=== PATIENT | female | born 1960 | race Caucasian/White ===

== ENCOUNTER 2017-09-03 10:55 | Inpatient (IN) | payer BC, OTHER ==
[2017-09-03] MEDS ORDERED: NS 1,000 ML IV ONE (11:11)
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
[2017-09-03] MEDS ORDERED: LIDOCAINE 1% 80 MG in NS 100 ML IV ONE (11:28)
[2017-09-03] MEDS ORDERED: HALOPERIDOL LACT 5 MG/ML INJ IVP ONE (11:28)
[2017-09-03 11:35] LABS: PLATELET COUNT 309 10^3/uL (150-400)
[2017-09-03] MEDS ORDERED: IOPAMIDOL (ISOVUE-300) 100 ML BTL ONE (11:47)
[2017-09-03] MEDS ORDERED: HYDROmorphONE/DILAUDID 2 MG/ML INJ IVP ONE ×2 (12:39→13:45)
[2017-09-03] MEDS ORDERED: CIPROFLOXACIN 400 MG/DEXTROSE 200 ML IV ONE (13:39)
[2017-09-03] MEDS ORDERED: ONDANSETRON 4 MG/2 ML VIAL IVP PRN (15:16)
[2017-09-03] MEDS ORDERED: ONDANSETRON DISINTEGRATING 4 MG TAB PO PRN (15:16)
[2017-09-03] MEDS ORDERED: HYDROmorphone HCL/NS 0.5 MG/ML SYR IVP PRN (15:16)
[2017-09-03] MEDS ORDERED: ACETAMINOPHEN 325 MG TAB PO PRN (15:16)
[2017-09-03] MEDS ORDERED: oxyCODONE IR 5 MG TAB PO PRN (15:16)
[2017-09-03] MEDS ORDERED: TAPENTADOL HCL 50 MG TAB PO PRN (15:17)
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
[2017-09-03] MEDS ORDERED: NS 500 ML IV SCH (15:30)
[2017-09-03] MEDS: NS 1,000 ML IV SCH (15:36)
[2017-09-03] MEDS: CIPROFLOXACIN 400 MG/DEXTROSE 200 ML IV SCH (16:06)
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
[2017-09-03] MEDS: HYDROmorphone HCL/NS 0.5 MG/ML SYR IVP PRN ×2 (19:48→23:38)
[2017-09-03] MEDS: GABAPENTIN 100 MG CAP PO SCH (21:09)
[2017-09-03] MEDS: LORazepam 2 MG/ML INJ IVP PRN (23:39)
[2017-09-04] MEDS: CIPROFLOXACIN 400 MG/DEXTROSE 200 ML IV SCH ×2 (01:23→15:02)
[2017-09-04] MEDS: NS 1,000 ML IV SCH ×3 (01:23→21:42)
[2017-09-04] MEDS: HYDROmorphone HCL/NS 0.5 MG/ML SYR IVP PRN ×8 (04:32→21:35)
[2017-09-04 05:24] LABS: PLATELET COUNT 264 10^3/uL (150-400)
[2017-09-04] MEDS: ENOXAPARIN 40 MG/0.4 ML SYR SC SCH (07:47)
[2017-09-04] MEDS: PROMETHAZINE HCL 25 MG/ML INJ IVP PRN (09:58)
--- NOTE | 2017-09-04 11:01 | ASMTCASEMG ---
Living Arrangements What is your living Answers: With Spouse arrangement? Who do you live with? Type Of Residence What kind of residence do Answers: House you live in? Discharge Plan Comments Coordination Status Comments Notes: Patient is a 56yo woman who has been admitted for elevated liver enzymes, sigmoid diverticulitis, intractable abdominal pain, and a lesion of the right [place] kidney. An OT eval has been ordered. Patient lives with her in her own home. D/C plan TBD. CM will follow. Date Signed: 09/04/2017 11:00 AM Electronically Signed By:Nahed Garcia LCSW
--- NOTE | 2017-09-04 14:43 | HOSPPROG ---
Hospitalist Progress Note Assessment/Plan: 56 yo F with hx of chronic pain admitted with abdominal pain 2/2 sigmoid diverticulitis # sigmoid diverticulitis: with associated phlegmon and significant pain. Started on IVF, bowel rest, IV abx with cipro/flagyl and IV opiates as needed for pain. NO improvement in pain overnight, may need to advance to [employer]. # elevated lfts: suspect related to above, improved overnight, imaging of liver/ gb all appear normal # hyponatremia: hypovolemic hyponatremia in setting of poor po intake, resolved with IVF # bacturia: without urinary sxs and cultures pending # calcified leiomyota: present on prior imaging as well, will need to f/u with OB after discharge to be sure this remains stable and does not require further w /u # pain: severe, with hx of chronic pain but no longer on chronic opiates at home , may make pain control more challenging, has had good response to IV dilaudid and will continue for now # IP status, given severity of pain and severe diverticulitis suspect she will need > 48 hours stay Care plan reviewed with patients Subjective: no significant overnight events, patient not feeling much better so far, not hungry Objective: Vital Signs Temp Pulse Resp BP Pulse Ox 36.6 C 82 18 135/94 H 96 09/04/17 11:46 09/04/17 11:46 09/04/17 11:46 09/04/17 11:46 09/04/17 11:46 Laboratory Results 09/04/17 04:51 09/04/17 04:51 09/03/17 09/04/17 09/05/17 05:59 05:59 05:59 Intake Total 391 100 Output Total 750 700 Balance -359 -600 Constitutional: appears nourished, uncomfortable Eyes: PERRL, anicteric sclera Ears, Nose, Mouth, Throat: moist mucous membranes Cardiovascular: regular rate and rhythym, no murmur, rub, or gallop, No edema Respiratory: no respiratory distress, no rales or rhonchi, clear to auscultation Gastrointestinal: normoactive bowel sounds, tenderness, No guarding, No rebound , No distension Genitourinary: no bladder tenderness Skin: warm, normal color Musculoskeletal: full muscle strength Neurologic: AAOx3 Psychiatric: interacting appropriately, not anxious, not encephalopathic - Time Spent With Patient Time Spent with Patient: greater than 35 minutes Time Spent with Patient: Greater than 35 minutes spent on this patients care, greater than 50% of time spent counseling, educating, and coordinating care regarding the above mentioned plan. ICD10 Worksheet Patient Problems: Problems Problem Status Onset Elevated liver enzymes Acute Intractable abdominal pain Acute Lesion of right [place] kidney Acute Phlegmon Acute Sigmoid diverticulitis Acute
[2017-09-04] MEDS: GABAPENTIN 100 MG CAP PO SCH (21:35)
[2017-09-04] MEDS: LORazepam 2 MG/ML INJ IVP PRN (21:36)
[2017-09-05] MEDS: HYDROmorphone HCL/NS 0.5 MG/ML SYR IVP PRN ×8 (01:30→21:36)
[2017-09-05] MEDS: CIPROFLOXACIN 400 MG/DEXTROSE 200 ML IV SCH ×2 (02:57→14:06)
[2017-09-05] MEDS: LORazepam 2 MG/ML INJ IVP PRN ×2 (04:30→21:37)
[2017-09-05] MEDS: NS 1,000 ML IV SCH (07:51)
[2017-09-05] MEDS: ENOXAPARIN 40 MG/0.4 ML SYR SC SCH (10:32)
--- NOTE | 2017-09-05 13:11 | HOSPPROG ---
Hospitalist Progress Note Assessment/Plan: 56 yo F with hx of chronic pain admitted with abdominal pain 2/2 sigmoid diverticulitis. First encounter, chart reviewed. # sigmoid diverticulitis: with associated phlegmon and significant pain. IVF, bowel rest IV abx with cipro/flagyl IV opiates as needed for pain. advance diet # elevated lfts: improving suspect related to above, improved overnight imaging of liver/gb all appear normal # hyponatremia: hypovolemic hyponatremia in setting of poor po intake, resolved with IVF # bacturia: without urinary sxs and cultures pending # calcified leiomyota: present on prior imaging as well, will need to f/u with OB after discharge to be sure this remains stable and does not require further w/u # pain: improved, with hx of chronic pain but no longer on chronic opiates at home, may make pain control more challenging, has had good response to IV dilaudid and will continue for now # IP status, given severity of pain and severe diverticulitis suspect she will need > 48 hours stay Care plan reviewed with patient Subjective: Feeling a bit better today. Less pain but didn't sleep well. Objective: Vital Signs Temp Pulse Resp BP Pulse Ox 36.6 C 94 16 121/83 H 95 09/05/17 07:28 09/05/17 07:28 09/05/17 07:28 09/05/17 07:28 09/05/17 07:28 Laboratory Results 09/04/17 04:51 09/04/17 04:51 09/04/17 09/05/17 09/06/17 05:59 05:59 05:59 Intake Total 391 3365 200 Output Total 750 1200 900 Balance -359 2165 -700 - Physical Exam Constitutional: no apparent distress, appears nourished, uncomfortable Eyes: PERRL, anicteric sclera, EOMI Ears, Nose, Mouth, Throat: moist mucous membranes, hearing normal, ears appear normal Cardiovascular: regular rate and rhythym, No JVD, No edema Respiratory: no respiratory distress, no rales or rhonchi, clear to auscultation Gastrointestinal: tenderness, No ascites, No distension Skin: warm, normal color, No mottled Musculoskeletal: no joint effusions, pain with ROM, generalized weakness Neurologic: AAOx3 Psychiatric: interacting appropriately, not anxious, not encephalopathic, thought process linear ICD10 Worksheet Patient Problems: Problems Problem Status Onset Elevated liver enzymes Acute Sigmoid diverticulitis Acute Intractable abdominal pain Acute Lesion of right [place] kidney Acute Phlegmon Acute
[2017-09-05] MEDS: GABAPENTIN 100 MG CAP PO SCH (21:36)
[2017-09-06] MEDS: CIPROFLOXACIN 400 MG/DEXTROSE 200 ML IV SCH ×2 (02:57→13:20)
[2017-09-06] MEDS: HYDROmorphone HCL/NS 0.5 MG/ML SYR IVP PRN ×6 (03:02→20:51)
[2017-09-06] MEDS: ENOXAPARIN 40 MG/0.4 ML SYR SC SCH (09:14)
--- NOTE | 2017-09-06 13:00 | HOSPPROG ---
Hospitalist Progress Note Assessment/Plan: 56 yo F with hx of chronic pain admitted with abdominal pain 2/2 sigmoid diverticulitis. # sigmoid diverticulitis: with associated phlegmon and significant pain. IVF, bowel rest IV abx with cipro/flagyl IV opiates as needed for pain. 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 Anxious about pain. Questions answered. Objective: Vital Signs Temp Pulse Resp BP Pulse Ox 37.3 C 81 18 138/93 H 99 09/06/17 07:25 09/06/17 07:25 09/06/17 07:25 09/06/17 07:25 09/06/17 07:25 Laboratory Results 09/04/17 04:51 09/04/17 04:51 09/05/17 09/06/17 09/07/17 05:59 05:59 05:59 Intake Total 3365 800 Output Total 1200 2700 Balance 2165 -1900 - Physical Exam Constitutional: no apparent distress, appears nourished, uncomfortable Eyes: PERRL, anicteric sclera, EOMI Ears, Nose, Mouth, Throat: moist mucous membranes, hearing normal, ears appear normal Cardiovascular: No JVD, No tachycardia, No edema Respiratory: no respiratory distress, no rales or rhonchi, reduced air movement Gastrointestinal: tenderness, distension, No ascites Skin: warm, normal color, No mottled Musculoskeletal: normal joint ROM, no joint effusions, generalized weakness Neurologic: AAOx3 Psychiatric: interacting appropriately, not anxious, not encephalopathic, thought process linear ICD10 Worksheet Patient Problems: Problems Problem Status Onset Elevated liver enzymes Acute Sigmoid diverticulitis Acute Intractable abdominal pain Acute Lesion of right [place] kidney Acute Phlegmon Acute
[2017-09-06] MEDS ORDERED: HYDROmorphONE/DILAUDID 2 MG TAB PO PRN (13:18)
[2017-09-06] MEDS: LORazepam 2 MG/ML INJ IVP PRN (20:50)
[2017-09-06] MEDS: GABAPENTIN 100 MG CAP PO SCH (20:52)
[2017-09-06] MEDS: LORazepam 1 MG TAB PO PRN (23:48)
[2017-09-07] MEDS: HYDROmorphone HCL/NS 0.5 MG/ML SYR IVP PRN ×5 (01:41→19:46)
[2017-09-07] MEDS: NS 1,000 ML IV SCH ×2 (01:41→11:23)
[2017-09-07] MEDS: CIPROFLOXACIN 400 MG/DEXTROSE 200 ML IV SCH ×2 (01:41→13:19)
[2017-09-07] MEDS: ENOXAPARIN 40 MG/0.4 ML SYR SC SCH (07:41)
--- NOTE | 2017-09-07 13:09 | HOSPPROG ---
Hospitalist Progress Note Assessment/Plan: 56 yo F with hx of chronic pain admitted with abdominal pain 2/2 sigmoid diverticulitis. # sigmoid diverticulitis: with associated phlegmon and significant pain. IV abx with cipro/flagyl IV opiates as needed for pain. 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 Still having significant pain. Objective: Vital Signs Temp Pulse Resp BP Pulse Ox 36.6 C 77 16 140/83 H 97 09/07/17 07:56 09/07/17 07:56 09/07/17 07:56 09/07/17 07:56 09/07/17 07:56 Laboratory Results 09/04/17 04:51 09/04/17 04:51 09/06/17 09/07/17 09/08/17 05:59 05:59 05:59 Intake Total 800 2766 Output Total 2700 250 Balance -1900 2516 - Physical Exam Constitutional: appears nourished, chronically ill appearing, uncomfortable Eyes: PERRL, anicteric sclera Ears, Nose, Mouth, Throat: moist mucous membranes, hearing normal, ears appear normal Cardiovascular: No JVD, No tachycardia, No edema Respiratory: no respiratory distress, no rales or rhonchi, clear to auscultation Gastrointestinal: tenderness, No ascites, No guarding Skin: warm, normal color, No mottled Musculoskeletal: normal joint ROM, no joint effusions, generalized weakness Neurologic: AAOx3 Psychiatric: not encephalopathic, thought process linear, anxious ICD10 Worksheet Patient Problems: Problems Problem Status Onset Elevated liver enzymes Acute Sigmoid diverticulitis Acute Intractable abdominal pain Acute Lesion of right [place] kidney Acute Phlegmon Acute
[2017-09-07] MEDS ORDERED: metroNIDAZOLE 500 MG TAB PO SCH (15:30)
--- NOTE | 2017-09-07 17:52 | ASMTCMCOM ---
CM Note CM Note Notes: Spoke w/RN, anticipate pt hieu dc home w/support of when medically stable. CM available for any changes. DC Plan: Independent Date Signed: 09/07/2017 05:51 PM Electronically Signed By:Kim Feliciano RN
[2017-09-07] MEDS: GABAPENTIN 100 MG CAP PO SCH (19:45)
[2017-09-07] MEDS: LORazepam 2 MG/ML INJ IVP PRN (19:47)
[2017-09-07] MEDS ORDERED: CIPROFLOXACIN 500 MG TAB PO SCH (22:00)
[2017-09-08] MEDS: CIPROFLOXACIN 400 MG/DEXTROSE 200 ML IV SCH (03:12)
[2017-09-08] MEDS: HYDROmorphone HCL/NS 0.5 MG/ML SYR IVP PRN ×3 (03:12→11:09)
[2017-09-08] MEDS: ENOXAPARIN 40 MG/0.4 ML SYR SC SCH (08:02)
[2017-09-08] MEDS ORDERED: IBUPROFEN 200 MG TAB PO PRN (10:07)
[2017-09-08] MEDS: KETOROLAC 30 MG/1 ML SDV IVP PRN ×3 (11:26→23:17)
--- NOTE | 2017-09-08 12:58 | HOSPPROG ---
Hospitalist Progress Note Assessment/Plan: 56 yo F with hx of chronic pain admitted with abdominal pain 2/2 sigmoid diverticulitis. # sigmoid diverticulitis: with associated phlegmon and significant pain. abx change to PO, cipro/flagyl IV opiates as needed for pain. 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 Still having some pain. Trying PO abx. Objective: Vital Signs Temp Pulse Resp BP Pulse Ox 36.6 C 73 16 129/85 H 99 09/08/17 07:40 09/08/17 07:40 09/08/17 07:40 09/08/17 07:40 09/08/17 07:40 Laboratory Results 09/04/17 04:51 09/04/17 04:51 09/07/17 09/08/17 09/09/17 05:59 05:59 05:59 Intake Total 2766 500 3279 Output Total 250 Balance 2516 500 3279 - Physical Exam Constitutional: no apparent distress, appears nourished, uncomfortable Eyes: PERRL, anicteric sclera, EOMI Ears, Nose, Mouth, Throat: moist mucous membranes, hearing normal, ears appear normal Cardiovascular: No JVD, No tachycardia, No edema Respiratory: no respiratory distress, no rales or rhonchi, clear to auscultation Gastrointestinal: tenderness, No ascites, No guarding Skin: warm, normal color, No mottled Musculoskeletal: normal joint ROM, no joint effusions, generalized weakness Neurologic: AAOx3 Psychiatric: not encephalopathic, thought process linear, anxious ICD10 Worksheet Patient Problems: Problems Problem Status Onset Elevated liver enzymes Acute Sigmoid diverticulitis Acute Intractable abdominal pain Acute Lesion of right [place] kidney Acute Phlegmon Acute
[2017-09-08] MEDS: PROMETHAZINE HCL 25 MG/ML INJ IVP PRN ×2 (14:07→21:13)
[2017-09-08] MEDS: CIPROFLOXACIN 500 MG TAB PO SCH (14:08)
[2017-09-08] MEDS: metroNIDAZOLE 500 MG TAB PO SCH ×2 (17:24→23:13)
[2017-09-08] MEDS: GABAPENTIN 100 MG CAP PO SCH (21:13)
[2017-09-08] MEDS: LORazepam 1 MG TAB PO PRN (21:13)
[2017-09-09] MEDS: CIPROFLOXACIN 500 MG TAB PO SCH ×2 (02:13→14:20)
[2017-09-09] MEDS: KETOROLAC 30 MG/1 ML SDV IVP PRN ×3 (08:05→21:17)
[2017-09-09] MEDS: metroNIDAZOLE 500 MG TAB PO SCH ×2 (08:06→16:16)
[2017-09-09] MEDS: ENOXAPARIN 40 MG/0.4 ML SYR SC SCH (09:13)
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
[2017-09-09] MEDS: GABAPENTIN 100 MG CAP PO SCH (21:17)
[2017-09-09] MEDS: LORazepam 1 MG TAB PO PRN (21:18)
[2017-09-10] MEDS: metroNIDAZOLE 500 MG TAB PO SCH ×2 (00:57→07:36)
[2017-09-10] MEDS: CIPROFLOXACIN 500 MG TAB PO SCH (00:57)
[2017-09-10 05:00] LABS: PLATELET COUNT 374 10^3/uL (150-400)
[2017-09-10] MEDS: KETOROLAC 30 MG/1 ML SDV IVP PRN (05:52)
[2017-09-10] MEDS: ENOXAPARIN 40 MG/0.4 ML SYR SC SCH (07:55)
[2017-09-10 08:51] VITALS: BP 141/96
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
== END 2017-09-10 12:04 | disposition home or self-care (01) | DRG 392 ==
LOC: F3E 14:51
PROVIDERS: ADMIT Internal Medicine; ATTEND Internal Medicine
DX: K57.20 Diverticulitis of large intestine with perforation and abscess without bleeding (principal); E87.0 Hyperosmolality and hypernatremia; E87.1 Hypo-osmolality and hyponatremia; E86.1 Hypovolemia; R82.71 Bacteriuria; R74.8 Abnormal levels of other serum enzymes; R93.421 Abnormal radiologic findings on diagnostic imaging of right kidney; G89.29 Other chronic pain; Z79.891 Long term (current) use of opiate analgesic; D25.9 Leiomyoma of uterus, unspecified; D17.5 Benign lipomatous neoplasm of intra-abdominal organs
CPT/HCPCS: 82947-QW; 96374; 97165-GO; J0744; J1170; J1630; J1650; J1885; J2060; J2550; Q9967

== ENCOUNTER 2017-10-05 15:42 | Emergency (ER) | payer OTHER ==
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
[2017-10-05 16:18] VITALS: BP 150/103
== END 2017-10-05 16:16 | disposition home or self-care (01) ==
DX: L53.9 Erythematous condition, unspecified (principal)

== ENCOUNTER → 2017-10-05 | Outpatient (CLI) | payer OTHER ==
[~2017-10-05] MED LIST: GADOBUTROL 10 ML VIAL IVP ONE
== END ==
LOC: FIMAGING 06:52
PROVIDERS: ATTEND Family Medicine
DX: N28.1 Cyst of kidney, acquired (principal); K86.89 Other specified diseases of pancreas; D73.4 Cyst of spleen
CPT/HCPCS: A9585

== ENCOUNTER → 2018-05-09 | Outpatient (CLI) | payer OTHER | LOC: BMCIMAGING 13:37 | PROVIDERS: ATTEND Family Medicine | DX: Z12.31 Encounter for screening mammogram for malignant neoplasm of breast (principal) ==